=== PATIENT | male | born 1980 | race Caucasian/White ===

== ENCOUNTER 2024-03-25 15:03 | Outpatient (CLI) | payer BC, SELFPAY | END 2024-03-25 15:04 | disposition home or self-care (01) | LOC: NFLDREF 03-28 07:09 | PROVIDERS: PCP Nurse Practitioner Family; Visit Provider Nurse Practitioner Family | DX: Z13.6 Encounter for screening for cardiovascular disorders (principal); Z13.1 Encounter for screening for diabetes mellitus | CPT/HCPCS: 80061 ==